=== PATIENT | male | born 1985 | race Caucasian/White ===

== ENCOUNTER 2023-05-25 16:52 | Emergency (ER) | payer SELFPAY ==
[2023-05-25 17:03] VITALS: BP 156/98; TEMP 98.6
[2023-05-25] MEDS ORDERED: FLEXERIL 1010 MG/TAB PO (18:50)
[2023-05-25 19:21] VITALS: PULSE 85
== END 2023-05-25 19:25 | disposition home or self-care (01) ==
LOC: COL.ER 16:52
DX: S60.212A Contusion of left wrist, initial encounter (principal); M54.50 Low back pain, unspecified; M62.838 Other muscle spasm; V49.40XA Driver injured in collision with unspecified motor vehicles in traffic accident, initial encounter; Y92.410 Unspecified street and highway as the place of occurrence of the external cause
CPT/HCPCS: J1885